=== PATIENT | male | born 1990 | race Two or more races ===

== ENCOUNTER 2023-12-26 13:29 | Inpatient (IN) | payer MEDICAID, OTHER ==
[~2023-12-26] VITALS: Ht 185.4 cm; Wt 117.3 kg
[2023-12-26 14:20] LABS: Basophils # (auto) 0.1 10 ^3/uL (0-0.2); Basophils % (auto) 0.5 % (0.0-2.0); Eosinophils # (auto) 0 10 ^3/uL (0-0.8); Eosinophils % (auto) 0.2 % (0.0-7.0); Hematocrit 46.7 % (41.0-53.0); Hemoglobin 16.1 g/dL (13.5-17.5); Lymphocytes # (auto) 1.3 10 ^3/uL (0.4-5.4); Lymphocytes % (auto) 6.5 % (10.0-50.0); Mean Corpuscular Hemoglobin 28.9 pg (28.0-32.0); Mean Corpuscular Hgb Conc. 34.4 g/dL (32.0-36.0); Mean Corpuscular Volume 83.9 fL (80.0-100.0); Monocytes # (auto) 1.1 10 ^3/uL (0-1.3); Monocytes % (auto) 5.8 % (0.0-12.0); Neutrophils # (auto) 16.8 10 ^3/uL (1.6-8.6); Red Blood Cells 5.56 10^6/uL (4.5-5.90); Red Cell Distribution Width 14.4 % (11.8-14.3); White Blood Cell 19.4 10^3/uL (4.4-10.8)
[2023-12-26 14:35] LABS: Alanine Aminotransferase 53 U/L (7-40); Albumin 5.1 g/dL (3.2-4.8); Alkaline Phosphatase 85 U/L (46-116); Anion Gap 13 (5-15); Aspartate Aminotransferase 19 U/L (13-40); BUN/Creatinine Ratio 10.8 (10.0-20.0); Bilirubin, Total 0.6 mg/dL (0.2-1.0); Blood Urea Nitrogen 14 mg/dL (9-23); Calcium 11.5 mg/dL (8.7-10.4); Carbon Dioxide 27 mmol/L (20-30); Chloride 94 mmol/L (98-107); Glucose 174 mg/dL (74-106); Lipase 225 U/L (12-53); Potassium 3.5 mmol/L (3.5-5.1); Sodium 134 mmol/L (136-145); Total Protein 8.4 g/dL (5.7-8.2)
[2023-12-26 15:00] VITALS: PULSE 92; RESP 15; O2SAT 94
[2023-12-26] MEDS: PANTOPRAZOLE 40 MG/10 ML VIAL INJ IV ONE (15:18)
[2023-12-26] MEDS: PROCHLORPERAZINE EDISYLATE 5 MG/ML 2ML VIAL IV ONE (15:18)
[2023-12-26] MEDS: SODIUM CHLORIDE 0.9% 500 ML IVB ONE (15:19)
[2023-12-26] MEDS: cloNIDine HCL 0.1 MG TAB PO ONE (15:20)
[2023-12-26] MEDS: hydrALAZINE HCL 20 MG/ML VL IV ONE (16:20)
[2023-12-26] MEDS ORDERED: ONDANSETRON HCL 4 MG/2 ML VIAL IV PRN (16:30)
[2023-12-26] MEDS ORDERED: hydrALAZINE HCL 20 MG/ML VL IV PRN (16:30)
[2023-12-26] MEDS ORDERED: DOCUSATE SOD 100 MG CAP PO PRN (16:30)
[2023-12-26] MEDS ORDERED: PANTOPRAZOLE 40 MG/10 ML VIAL INJ IV ONE (16:30)
[2023-12-26] MEDS ORDERED: MORPHINE SULFATE INJ 2 MG/ml SYRG IV PRN ×2 (16:30)
[2023-12-26] MEDS ORDERED: NITROGLYCERIN 0.4 MG SL TAB SL PRN (16:30)
[2023-12-26] MEDS: DICYCLOMINE HCL (10MG/ML) 2 ML AMPULE IM ONE (17:21)
[2023-12-26] MEDS: SODIUM CHLORIDE 0.9% 1,000 ML IV SCH (17:21)
[2023-12-26] MEDS ORDERED: DEXTROSE (50%) 50ML SYRG IV PRN (17:45)
[2023-12-26] MEDS ORDERED: FOLIC ACID 1 MG, MAGNESIUM SULF SDV 50% 8 MEQ, MULTIPLE VITAMIN 10 ML, THIAMINE INJ 100... INJ SCH (18:00)
[2023-12-26 18:49] LABS: Lactic Acid w/Reflex 2.7 mmol/L (0.4-2.0)
[2023-12-26 18:56] LABS: Urine Bacteria None Seen /hpf (None Seen)
[2023-12-26] MEDS: ACCU-CHEK COMFORT CURVE STRIP VI SCH (19:02)
[2023-12-26] MEDS: InsuLIN REG 1unit/0.01ml Soln (100units/ml) SC SCH (19:04)
[2023-12-26] MEDS: ASPirin 325 MG TAB PO ONE (19:07)
[2023-12-26] MEDS: LABETALOL HCL 5 MG/ML 4ML SYRINGE IV ONE (19:08)
[2023-12-26 19:35] VITALS: PULSE 95; RESP 17; O2SAT 95
[2023-12-26 19:40] LABS: Urine Blood Negative /uL (Negative); Urine Clarity Clear (Clear); Urine Color Light-Yellow (Yellow); Urine Protein, UAD 1+ (Negative); Urine Specific Gravity 1.013 (1.001-1.035); Urine Urobilinogen Normal (Negative); Urine WBC 1 /hpf (0 - 3); Urine pH 6.5 (5.0-9.0)
[2023-12-26 20:00] VITALS: BP 204/123; PULSE 95; RESP 17; TEMP 98.8; O2SAT 95
[2023-12-26] MEDS: PIPERACILLIN-TAZOB 3.375GM 100 ML IV ONE (20:09)
[2023-12-26] MEDS ORDERED: DICYCLOMINE HCL 10 MG CAP PO SCH (22:00)
[2023-12-26] MEDS ORDERED: METOPROLOL TARTRATE 50 MG TAB PO SCH (22:00)
[2023-12-26] MEDS ORDERED: ATORVASTATIN 20 MG TAB PO ONE (22:00)
[2023-12-27] MEDS ORDERED: PIPERACILLIN-TAZOB 3.375GM 100 ML IV SCH
[2023-12-27] MEDS ORDERED: ASPirin 81 mg TAB PO SCH (10:00)
[2023-12-27] MEDS ORDERED: PANTOPRAZOLE 40 MG/10 ML VIAL INJ IV SCH (10:00)
[2023-12-27] MEDS ORDERED: ATORVASTATIN 20 MG TAB PO SCH (22:00)
== END 2023-12-26 20:33 | disposition left against medical advice (07) | DRG 282 ==
LOC: ER 13:29 → TELE 16:44
PROVIDERS: ADMIT Nurse Practitioner Family; ATTEND Nurse Practitioner Family
DX: K85.90 Acute pancreatitis without necrosis or infection, unspecified (principal); R65.11 Systemic inflammatory response syndrome (SIRS) of non-infectious origin with acute organ dysfunction; K76.0 Fatty (change of) liver, not elsewhere classified; E83.51 Hypocalcemia; R16.0 Hepatomegaly, not elsewhere classified; E86.0 Dehydration; I16.1 Hypertensive emergency; F10.10 Alcohol abuse, uncomplicated; Y90.9 Presence of alcohol in blood, level not specified; I10 Essential (primary) hypertension; Z82.49 Family history of ischemic heart disease and other diseases of the circulatory system; Z83.3 Family history of diabetes mellitus; Z59.02 Unsheltered homelessness
CPT/HCPCS: 36415; 70450; 74176; 76705; 80053; 81001; 82607; 82962; 83036; 83605; 83690; 84484; 85025; 93005; G0378; J1815; J2470; J2543; J3490

== ENCOUNTER 2023-12-28 12:57 | Emergency (ER) | payer MEDICAID ==
[~2023-12-28] VITALS: Ht 185.4 cm; Wt 113.3 kg
[2023-12-28 13:29] VITALS: PULSE 87; RESP 14; O2SAT 97
[2023-12-28] MEDS: IOHEXOL 350 MG/ML 100ML IJ ONE (13:30)
[2023-12-28] MEDS: hydrALAZINE HCL 20 MG/ML VL IV ONE ×2 (13:33→14:39)
[2023-12-28] MEDS: cloNIDine HCL 0.1 MG TAB PO ONE (13:34)
[2023-12-28] MEDS: SUMAtriptan SUCCINATE 6 MG/0.5 ML VL SC ONE (13:35)
[2023-12-28 14:13] LABS: Basophils # (auto) 0.2 10 ^3/uL (0-0.2); Eosinophils # (auto) 0.4 10 ^3/uL (0-0.8); Eosinophils % (auto) 2.3 % (0.0-7.0); Hematocrit 40.4 % (41.0-53.0); Hemoglobin 13.9 g/dL (13.5-17.5); Lymphocytes # (auto) 1.9 10 ^3/uL (0.4-5.4); Lymphocytes % (auto) 11.5 % (10.0-50.0); Mean Corpuscular Hemoglobin 28.9 pg (28.0-32.0); Mean Corpuscular Hgb Conc. 34.4 g/dL (32.0-36.0); Mean Corpuscular Volume 84.1 fL (80.0-100.0); Monocytes # (auto) 1.8 10 ^3/uL (0-1.3); Monocytes % (auto) 10.8 % (0.0-12.0); Neutrophils # (auto) 12.1 10 ^3/uL (1.6-8.6); Neutrophils % (auto) 74.4 % (37.0-80.0); Nucleated Red Blood Cells % 0.1 %; Red Cell Distribution Width 14.3 % (11.8-14.3); White Blood Cell 16.3 10^3/uL (4.4-10.8)
[2023-12-28 14:32] LABS: INR 1.11 (0.9-1.15); Partial Thromboplastin Time 29.5 SEC (24.5-34.5); Prothrombin Time 11.7 sec (9.3-11.8)
[2023-12-28 14:48] LABS: Alanine Aminotransferase 38 U/L (7-40); Alkaline Phosphatase 69 U/L (46-116); Calcium 9.4 mg/dL (8.5-10.1); Chloride 94 mmol/L (98-107)
[2023-12-28 14:49] LABS: Albumin 4.6 g/dL (3.2-4.8); Anion Gap 8 (5-15); Aspartate Aminotransferase 21 U/L (13-40); BUN/Creatinine Ratio 16.7 (10.0-20.0); Bilirubin, Total 0.5 mg/dL (0.2-1.0); Blood Urea Nitrogen 17 mg/dL (9-23); Carbon Dioxide 29 mmol/L (20-30); Glucose 120 mg/dL (74-106); Potassium 3.2 mmol/L (3.5-5.1); Sodium 131 mmol/L (136-145); Total Protein 7.2 g/dL (5.7-8.2)
[2023-12-28] MEDS ORDERED: hydrALAZINE HCL 20 MG/ML VL IV PRN (17:30)
[2023-12-28] MEDS ORDERED: ONDANSETRON HCL 4 MG/2 ML VIAL IV PRN (17:30)
[2023-12-28] MEDS ORDERED: HYDROcodone-ACET 5/325MG TAB PO PRN (17:30)
[2023-12-28] MEDS: SODIUM CHLORIDE 0.9% 1,000 ML IV SCH (17:30)
[2023-12-28] MEDS: POTASSIUM CHL 20MEQ/100ML 100 ML IV SCH (17:30)
[2023-12-28] MEDS ORDERED: DOCUSATE SOD 100 MG CAP PO PRN (17:30)
[2023-12-28] MEDS: cefTRIAXone 1GM/50ML D5W 50 ML IV ONE (18:22)
[2023-12-28] MEDS ORDERED: NITROGLYCERIN 0.4 MG SL TAB SL PRN (18:30)
[2023-12-28] MEDS ORDERED: MORPHINE SULFATE INJ 2 MG/ml SYRG IV PRN (18:30)
[2023-12-28 19:30] VITALS: O2SAT 98
[2023-12-28] MEDS ORDERED: POTASSIUM CHL 20MEQ/100ML 100 ML IV SCH (19:30)
[2023-12-28] MEDS: LORazepam 2MG/ML-1ML VIAL IV ONE (20:09)
[2023-12-28] MEDS ORDERED: ACETAMINOPHEN 325 MG TAB PO PRN (21:30)
[2023-12-28] MEDS: ACETAMINOPHEN 325 MG TAB PO PRN (21:43)
[2023-12-28] MEDS: cloNIDine HCL 0.1 MG TAB PO PRN (21:45)
[2023-12-28] MEDS ORDERED: METOPROLOL TARTRATE 50 MG TAB PO SCH (22:00)
[2023-12-28] MEDS: DexAMETHasone SOD PHOS 10MG/1ML VIAL INJ IV ONE (22:38)
[2023-12-28 23:05] VITALS: BP 179/101; PULSE 90; RESP 24; TEMP 98.6; O2SAT 97
[2023-12-29] MEDS ORDERED: cefTRIAXone 1GM/50ML D5W 50 ML IV SCH (09:00)
[2023-12-29] MEDS ORDERED: amLODIPine BESYLATE 5 MG TAB PO SCH (10:00)
== END 2023-12-28 23:21 | disposition admitted as inpatient to this hospital (09) ==
LOC: ER 12:57 → UNDOADMIN 18:20 → TELE 18:20 → ER 23:21
DX: I16.1 Hypertensive emergency (principal); I63.9 Cerebral infarction, unspecified; R94.31 Abnormal electrocardiogram [ECG] [EKG]; R47.81 Slurred speech; F15.90 Other stimulant use, unspecified, uncomplicated; Z79.899 Other long term (current) drug therapy
CPT/HCPCS: 36415; 70450; 70496; 71045; 80053; 82962; 83735; 83880; 84484; 85025; 85610; 85730; 87040; 93005; 96361; 96365; 96372; 96375; 96376; 99285; J0360; J0696; J1100; J2060; J3030; J3480; Q9967